=== PATIENT | female | born 1970 | race Caucasian/White ===

== ENCOUNTER 2019-12-01 09:00 | Observation (INO) ==
[~2019-12-01 09:00] MED LIST: Acetaminophen IV 1,000 MG/100 ML INFUS..BTL IVPB ONE; Famotidine 20 MG/2 ML VIAL IVP ONE; Ringers Solution, Lactated 1,000 ML IVC SCH
[2019-12-01] MEDS ORDERED: Vancomycin 1,000 MG VIAL ONE (09:05)
[2019-12-01] MEDS ORDERED: Ethanol\\Acetic Acid\\Na Ace\\Ben 1,000 ML IRRIG.SOLN IR ONE (09:05)
[2019-12-01] MEDS ORDERED: CeFAZolin Syr 2,000MG/20 ML 2,000 MG/20 ML SYRINGE IVPB ONE (09:11)
[2019-12-01] MEDS ORDERED: *HR* Propofol 200 MG/20 ML VIAL IVP ONE (09:14)
[2019-12-01] MEDS ORDERED: Ringers Solution, Lactated 1,000 ML IVC SCH (09:15)
[2019-12-01] MEDS ORDERED: Lidocaine -MPF 2% 2 ML VIAL ONE ×2 (09:15→09:29)
[2019-12-01] MEDS ORDERED: *HR* HYDROmorphone PF 0.5 MG/0.5 ML SYRINGE IVP PRN (09:23)
[2019-12-01] MEDS ORDERED: Ondansetron 4 MG/2 ML VIAL IVP PRN (09:23)
[2019-12-01] MEDS ORDERED: *HR* OxyCODONE Immed Rel 5 MG TABLET PO PRN (09:23)
[2019-12-01] MEDS ORDERED: *HR* FentaNYL (PF) 100 MCG/2 ML VIAL ONE (09:32)
[2019-12-01] MEDS ORDERED: *HR* Midazolam HCl 2 MG/2 ML VIAL ONE (09:32)
[2019-12-01] MEDS ORDERED: Lidocaine HCL 4 ML Topical Solution (Laryng-O-Jet Kit Sterile Pak) TP ONE (09:35)
[2019-12-01] MEDS ORDERED: *HR* Succinylcholine 200 MG/10 ML VIAL IVP ONE (09:35)
[2019-12-01] MEDS ORDERED: Ropivacaine/PF 0.5% 30 ML VIAL ONE (09:37)
[2019-12-01] MEDS ORDERED: ROPIVACAINE/PF/NS 0.25% 1 EACH SYRINGE INTRAART ONE (09:37)
[2019-12-01] MEDS ORDERED: Tranexamic Acid 1,000 MG/10 ML VIAL ONE (10:08)
[2019-12-01] MEDS ORDERED: TOTAL JOINT MIXTURE (100ML) INTRAART ONE (10:10)
[2019-12-01] MEDS ORDERED: Povidone-Iodine 45 ML, Sodium Chloride IRRigation 1,000 ML IR ONE (10:10)
[2019-12-01] MEDS ORDERED: *HR* HYDROMORPHONE 2 MG/ML VIAL ONE (10:12)
[2019-12-01 11:49] LABS: Hematocrit 37.7 % (35.3-44.9)
[2019-12-01] MEDS ORDERED: D5% in Water 1,000 ML IVC PRN (12:12)
[2019-12-01] MEDS ORDERED: *HR* Dextrose 50 % in Water (Vial) 50 ML VIAL IVP PRN (12:12)
[2019-12-01] MEDS ORDERED: Sennosides 8.6 MG TABLET PO PRN (12:12)
[2019-12-01] MEDS ORDERED: Dextrose Gel 15 GM/37.5 ML TUBE PO PRN ×2 (12:12)
[2019-12-01] MEDS ORDERED: *HR* Promethazine 25 MG/ML VIAL IM PRN (12:12)
[2019-12-01] MEDS ORDERED: MOM Conc 10 ML UD.LIQ PO PRN (12:12)
[2019-12-01] MEDS ORDERED: Fluticasone Propionate Nasal 50 MCG/SPRAY BOTTLE NS PRN (12:12)
[2019-12-01] MEDS ORDERED: Naloxone 0.4 MG/ML INJ IVP PRN (12:12)
[2019-12-01] MEDS: Insulin LISPRO 300 UNITS/3 ML VIAL SQ SCH ×3 (12:31→21:38)
[2019-12-01] MEDS: Ringers Solution, Lactated 1,000 ML IVC SCH (12:34)
[2019-12-01] MEDS: Ondansetron 4 MG/2 ML VIAL IVP PRN (14:37)
[2019-12-01] MEDS: Ibuprofen 800 MG TABLET PO PRN (16:57)
[2019-12-01] MEDS: Ascorbic Acid 500 MG TABLET PO SCH (16:57)
[2019-12-01] MEDS: CeFAZolin 2 GM/120 ML BAG IVPB SCH (17:57)
[2019-12-01] MEDS: *HR* OxyCODONE Immed Rel 5 MG TABLET PO PRN (21:45)
[2019-12-02] MEDS: Ringers Solution, Lactated 1,000 ML IVC SCH (02:14)
[2019-12-02] MEDS: CeFAZolin 2 GM/120 ML BAG IVPB SCH (02:14)
[2019-12-02] MEDS: Insulin LISPRO 300 UNITS/3 ML VIAL SQ SCH ×4 (07:50→20:06)
[2019-12-02] MEDS ORDERED: FERROUS GLUCONATE PO SCH (09:00)
[2019-12-02 09:09] LABS: Basophils % 0.4 %; Eosinophils % 0.3 %; Hematocrit 33.7 % (35.3-44.9); Hemoglobin 10.9 g/dL (11.5-15.4); Immature Granulocytes % 0.4 % (0-4); Mean Corpuscular HGB Conc 32.3 g/dL (31.6-35.5); Mean Corpuscular Hemoglobin 31.1 pg (28.0-33.3); Mean Corpuscular Volume 96.3 fL (83.0-100.0); Mean Platelet Volume 9.8 fL (9.4-12.4); Monocytes # 0.8 K/mcL (0.0-1.3); Neutrophils # 7.4 K/mcL (1.6-8.9); Platelet Count 240 K/mcL (140-400); Red Cell Distribution Width 12.7 % (11.5-14.5); Segmented Neutrophils % 71.9 %; White Blood Count 10.3 K/mcL (4.3-11.1)
[2019-12-02] MEDS: Ascorbic Acid 500 MG TABLET PO SCH ×2 (09:10→15:18)
[2019-12-02] MEDS: Magnesium Oxide 400 MG TABLET PO SCH (09:10)
[2019-12-02] MEDS: Multivit/Ca/Min/Fe/FA 1 TAB TABLET PO SCH (09:10)
[2019-12-02] MEDS: BuPROPion SR (12 HR) 150 MG TABLET PO SCH (09:10)
[2019-12-02] MEDS: Vitamin B Complex/Vit C/Vit E 1 EACH TABLET PO SCH (09:10)
[2019-12-02] MEDS: estradioL 1 MG TABLET PO SCH (09:10)
[2019-12-02] MEDS: Lactobacillus 1 EACH CAP.SPRINK PO SCH (09:10)
[2019-12-02] MEDS: Cholecalciferol (D-3) 1,000 UNIT (25MCG) TABLET PO SCH (09:10)
[2019-12-02 09:29] LABS: BUN/Creatinine Ratio 15 (6-26); Blood Urea Nitrogen 14 mg/dL (6-20); Calcium 8.6 mg/dL (8.6-10.3); Carbon Dioxide 27 mEq/L (23-29); Chloride 107 mEq/L (98-107); Glucose 117 mg/dL (70-105); Osmolality,Calculated 292 (280-300); Potassium 3.7 mEq/L (3.5-5.1); Sodium 140 mEq/L (136-145); eGFR For African Americans > 60 (> 60); eGFR For Non-African Americans > 60 (> 60)
[2019-12-02] MEDS: Ibuprofen 800 MG TABLET PO PRN (10:37)
[2019-12-02] MEDS: Aspirin Enteric Coated 81 MG Tablet PO SCH (10:39)
[2019-12-02] MEDS: *HR* OxyCODONE Immed Rel 5 MG TABLET PO PRN ×2 (13:42→17:16)
[2019-12-02] MEDS: HYDROcodone BIT/Homatropine 5 MG TABLET PO PRN ×2 (15:18→20:53)
[2019-12-02] MEDS: Ondansetron 4 MG/2 ML VIAL IVP PRN (18:01)
[2019-12-03 05:07] LABS: Basophils # 0.1 K/mcL (0.0-0.2); Basophils % 0.7 %; Eosinophils # 0.5 K/mcL (0.0-0.6); Eosinophils % 7.3 %; Hematocrit 33.5 % (35.3-44.9); Hemoglobin 10.6 g/dL (11.5-15.4); Immature Granulocytes % 0.4 % (0-4); Lymphocytes # 1.7 K/mcL (0.6-4.6); Lymphocytes % 23.6 %; Mean Corpuscular HGB Conc 31.6 g/dL (31.6-35.5); Mean Corpuscular Hemoglobin 30.5 pg (28.0-33.3); Mean Corpuscular Volume 96.3 fL (83.0-100.0); Monocytes # 0.6 K/mcL (0.0-1.3); Monocytes % 8.4 %; Neutrophils # 4.3 K/mcL (1.6-8.9); Platelet Count 227 K/mcL (140-400); Red Blood Count 3.48 M/mcL (3.82-4.97); Segmented Neutrophils % 59.6 %; White Blood Count 7.3 K/mcL (4.3-11.1)
[2019-12-03 05:20] LABS: BUN/Creatinine Ratio 16 (6-26); Blood Urea Nitrogen 15 mg/dL (6-20); Calcium 8.4 mg/dL (8.6-10.3); Carbon Dioxide 27 mEq/L (23-29); Chloride 109 mEq/L (98-107); Glucose 93 mg/dL (70-105); Osmolality,Calculated 281 (280-300); Potassium 4.2 mEq/L (3.5-5.1); Sodium 135 mEq/L (136-145); eGFR For African Americans > 60 (> 60); eGFR For Non-African Americans > 60 (> 60)
[2019-12-03] MEDS: *HR* OxyCODONE Immed Rel 5 MG TABLET PO PRN ×2 (07:17→15:58)
[2019-12-03] MEDS: Vitamin B Complex/Vit C/Vit E 1 EACH TABLET PO SCH (08:19)
[2019-12-03] MEDS: Magnesium Oxide 400 MG TABLET PO SCH (08:20)
[2019-12-03] MEDS: Aspirin Enteric Coated 81 MG Tablet PO SCH (08:20)
[2019-12-03] MEDS: Lactobacillus 1 EACH CAP.SPRINK PO SCH (08:20)
[2019-12-03] MEDS: BuPROPion SR (12 HR) 150 MG TABLET PO SCH (08:20)
[2019-12-03] MEDS: Cholecalciferol (D-3) 1,000 UNIT (25MCG) TABLET PO SCH (08:20)
[2019-12-03] MEDS: Multivit/Ca/Min/Fe/FA 1 TAB TABLET PO SCH (08:20)
[2019-12-03] MEDS: estradioL 1 MG TABLET PO SCH (08:20)
[2019-12-03 08:21] VITALS: BP 134/90
[2019-12-03] MEDS: Ascorbic Acid 500 MG TABLET PO SCH ×2 (08:21→15:59)
[2019-12-03] MEDS: Insulin LISPRO 300 UNITS/3 ML VIAL SQ SCH ×3 (08:21→15:59)
[2019-12-03] MEDS: Ondansetron 4 MG/2 ML VIAL IVP PRN (08:28)
== END 2019-12-03 17:13 | disposition home or self-care (01) ==
LOC: SAMDAY 09:00 → 3NENU 09:00
PROVIDERS: ADMIT Orthopaedic Surgery; ATTEND Orthopaedic Surgery